=== PATIENT | male | born 1940 | race Caucasian/White ===

== ENCOUNTER 2023-07-18 08:46 | Emergency (ER) | payer OTHER ==
[2023-07-18 09:10] VITALS: RESP 18; TEMP 97.6; BMI 34.8
[2023-07-18] MEDS ORDERED: BACITRACIN ZINC 15 GM TUBE TOPICAL OINTMENT ONE (10:27)
[2023-07-18 10:35] VITALS: BP 146/76; PULSE 48
== END 2023-07-18 10:35 | disposition home or self-care (01) ==
LOC: JER 08:46 → JERFT 08:46
DX: R21 Rash and other nonspecific skin eruption (principal); L53.9 Erythematous condition, unspecified
CPT/HCPCS: 99282-25